=== PATIENT | male | born 1965 | race Caucasian/White ===

== ENCOUNTER 2022-07-08 00:03 | Emergency (ER) | payer BC, OTHER ==
[2022-07-08 00:38] LABS: BASOPHILS % (AUTO) 0.3 %; EOSINOPHILS % (AUTO) 0.3 %; HCT - HEMATOCRIT 45.4 % (42.0-52.0); HGB - HEMOGLOBIN 16.3 g/dL (14.0-18.0); LYMPHOCYTES # (AUTO) 1.5 10^3/uL (1.5-3.5); LYMPHOCYTES % (AUTO) 12.8 %; MEAN CORPUSCULAR HEMOGLOBIN 30.7 pg (27.0-31.0); MEAN CORPUSCULAR HGB CONC 35.9 g/dL (32.0-36.0); MEAN CORPUSCULAR VOLUME 85.5 fL (80.0-94.0); MONOCYTES # (AUTO) 0.7 10^3/uL (0.0-1.0); MONOCYTES % (AUTO) 5.5 %; NEUTROPHILS # (AUTO) 9.8 10^3/uL (1.5-6.6); NEUTROPHILS % (AUTO) 80.9 %; PLT - PLATELET COUNT 281 10^3/uL (130-450); RED BLOOD COUNT 5.31 10^6/uL (4.70-6.10); RED CELL DISTRIBUTION WIDTH 12.3 % (12.0-15.0); WHITE BLOOD COUNT 12.1 x10^3/uL (4.8-10.8)
[2022-07-08 00:51] LABS: POTASSIUM 3.5 mmol/L (3.5-5.0)
[2022-07-08 00:52] LABS: ALBUMIN 4.4 g/dL (3.2-5.5); ALBUMIN/GLOBULIN RATIO 1.3 (1.0-2.2); BILIRUBIN,TOTAL 0.9 mg/dL (0.2-1.0); CALCIUM 9.1 mg/dL (8.5-10.3); TOTAL PROTEIN 7.8 g/dL (6.7-8.2)
--- NOTE | 2022-07-08 01:00 | XRAY Report ---
PROCEDURE: Chest 1 View X-Ray INDICATIONS: Chest pain TECHNIQUE: One view of the chest was acquired. COMPARISON: None. FINDINGS: Surgical changes and devices: None. Lungs and pleura: No pleural effusions or pneumothorax. Lungs are clear considering reduced inspira tory volume. Mediastinum: Mediastinal contours appear normal. Heart size is normal considering the reduced inspi ratory volume. Bones and chest wall: No suspicious bony lesions. Overlying soft tissues appear unremarkable. IMPRESSION: Expiratory chest examination. This accentuates the crowding of the bronchovascular markings and also the perceived heart size. No definite acute disease is not found. Reviewed by: Richmond Khan MD on 07/08/2022 1:09 AM [facility] Approved by: Richmond Khan MD on 07/08/2022 1:09 AM [facility] Station ID: [id number]
[2022-07-08] MEDS ORDERED: ASPIRIN CHEW 81 MG TABLET ONE (01:09)
[2022-07-08] MEDS ORDERED: ASPIRIN 325 MG TABLET PO STA (01:10)
[2022-07-08] MEDS ORDERED: MORPHINE 2 MG/ML CARPUJECT IVP STA ×2 (01:14→06:44)
[2022-07-08] MEDS ORDERED: ONDANSETRON 4 MG/2 ML VIAL IVP STA (01:14)
[2022-07-08] MEDS ORDERED: iohexoL-300 100 ML VIAL ONE (01:24)
[2022-07-08] MEDS ORDERED: iohexoL-300 100 ML VIAL IVP ONE (02:02)
--- NOTE | 2022-07-08 02:10 | CT Report ---
PROCEDURE: ANGIO CHEST W/WO INDICATIONS: rule out PE CONTRAST: 100 MO OMNI 300 AT 4 ML/SEC WITH SURESTART DELAY. TECHNIQUE: After the administration of intravenous contrast, 2 mm axial images were acquired from the pulmonary apices to the posterior costophrenic angles during the arterial phase. In addition, 1 mm lung kernel and 5 mm soft tissue kernel reconstructions were performed. 3-dimensional coronal oblique maximum int ensity projection (MIP) reformats, 8 mm axial MIP, and 5 mm coronal and sagittal MPR reformats were t hen performed through the thorax. For radiation dose reduction, the following was used: automated exp osure control, adjustment of mA and/or kV according to patient size. COMPARISON: Chest plain film 07/08/2022. FINDINGS: Image quality: Excellent. Pulmonary arteries: Pulmonary arteries are normal in size, and demonstrate no intraluminal filling d efects to suggest central pulmonary embolism. Lungs and pleura: Lungs are clear considering reduced inspiratory volume. No pleural effusions or p neumothorax. Central and peripheral airways are patent. Mediastinum: Heart size is normal, without pericardial effusion. No mediastinal or hilar adenopathy . Thoracic aorta is normal in caliber and enhancement. Esophagus is normal in caliber, without hiat al hernia. Bones and chest wall: No suspicious bony lesions. Ribs and thoracic spine appear intact throughout. No axillary or supraclavicular adenopathy. The thyroid is normal in size and there are no incident al findings. Abdomen: Visualized upper abdominal solid organs appear normal in the early arterial phase of enhanc ement. IMPRESSION: Reduced inspiratory volume. No acute disease. No pulmonary embolus identified. CLINICAL RECOMMENDATION STATEMENTS: In patients <35 years with an ITN detected on CT, MRI, or extrathyroidal ultrasound, the Committee re commends further evaluation with dedicated thyroid ultrasound if the nodule is "e1 cm and has no susp icious imaging features, and if the patient has normal life expectancy. In patients "e35 years with an ITN detected on CT, MRI, or extrathyroidal ultrasound, the Committee r ecommends further evaluation with dedicated thyroid ultrasound if the nodule is "e1.5 cm and has no s uspicious imaging features, and if the patient has normal life expectancy. (ACR, 2014) Reviewed by: Richmond Khan MD on 07/08/2022 2:08 AM PST Approved by: Richmond Khan MD on 07/08/2022 2:08 AM [facility] Station ID: [id number]
[2022-07-08] MEDS ORDERED: NITROGLYCERIN SL 0.4 MG TABLET SL PRN (02:34)
[2022-07-08] MEDS ORDERED: CLOPIDOGREL 300 MG TABLET PO STA (02:42)
[2022-07-08] MEDS ORDERED: ENOXAPARIN 80 MG/0.8 ML SYRINGE SUBQ SCH (03:00)
[2022-07-08] MEDS: ATORVASTATIN 40 MG TABLET PO SCH ×2 (03:03→10:47)
[2022-07-08] MEDS: ENOXAPARIN 80 MG/0.8 ML SYRINGE SUBQ SCH ×3 (03:04→20:40)
[2022-07-08] MEDS ORDERED: SODIUM CHLORIDE 0.9% 1,000 ML IV STA (03:07)
--- NOTE | 2022-07-08 03:44 | ED Physician Documentation ---
History of Present Illness - Stated complaint Stated Complaint: CHEST PX - Chief complaint Chief Complaint: Cardiac - Additonal information Additional information: Patient is 57-year-old male presenting to the emergency department with chief complaint of chest pain. Endorses for substernal chest pressure that began this morning. Denies previous episodes of pain. Denies diaphoresis, nausea or vomiting. Does report recently traveled from [place] to [facility] on vacation. Denies any leg swelling or history of blood clots. Endorses for history of hypertension, dyslipidemia and prediabetes. Review of Systems Constitutional: denies: Fever Cardiac: reports: Chest pain / pressure Respiratory: denies: Dyspnea GI: denies: Abdominal Pain, Nausea, Vomiting PD PAST MEDICAL HISTORY - Past Surgical History Past Surgical History: No - Present Medications Home Medications: Ambulatory Orders Medication Instructions Recorded Confirmed Amlodipine Besylate [Norvasc] 10 mg PO DAILY 07/08/22 07/08/22 Atorvastatin [Lipitor] 20 mg PO DAILY 07/08/22 07/08/22 Empagliflozin [Jardiance] 10 mg PO DAILY 07/08/22 07/08/22 Losartan Potassium [Cozaar] 100 mg PO DAILY 07/08/22 07/08/22 - Allergies Allergies/Adverse Reactions: Allergies Allergy/AdvReac Type Severity Reaction Status Date / Time No Known Drug Allergies Allergy Verified 07/08/22 00:06 - Social History Does the pt smoke?: No Smoking Status: Never smoker Does the pt drink ETOH?: No Does the pt have substance abuse?: No - Immunizations Immunizations are current?: No PD ED PE NORMAL - Vitals Vital signs reviewed: Yes - General General: Alert and oriented X 3, No acute distress - HEENT HEENT: Atraumatic, PERRL - Neck Neck: Supple, no meningeal sign - Cardiac Cardiac: RRR, No gallop - Respiratory Respiratory: No respiratory distress - Abdomen Abdomen: Normal bowel sounds, Soft - Derm Derm: Normal color - Extremities Extremities: No deformity - Neuro Neuro: Alert and oriented X 3, hand mixer 2-12 intact, No motor deficit, Normal speech Results - Vitals Vitals: Vital Signs - 24 hr 07/08/22 07/08/22 07/08/22 00:06 02:01 03:15 Temperature 36.8 C Heart Rate 98 101 H 84 Respiratory 18 16 23 Rate Blood Pressure 206/107 H 167/103 H 106/76 O2 Saturation 97 98 91 L If not protocol : Oxygen Flow, liters/minute 07/08/22 07/08/22 07/08/22 04:05 04:30 05:02 Temperature Heart Rate 97 82 85 Respiratory 18 18 20 Rate Blood Pressure 153/98 H 160/94 H 152/91 H O2 Saturation 98 98 95 If not protocol 2 2 2 : Oxygen Flow, liters/minute 07/08/22 07/08/22 05:30 06:19 Temperature Heart Rate 96 95 Respiratory 21 22 Rate Blood Pressure 163/91 H 154/92 H O2 Saturation 96 97 If not protocol 2 2 : Oxygen Flow, liters/minute Oxygen O2 Source Nasal cannula Oxygen Flow Rate 2 - EKG (time done) 0022 Rate: Rate (enter#) (96) Rhythm: NSR [place]: Normal Intervals: Prolonged TN. No: Prolonged QT QRS: Normal Ischemia: Normal ST segments, Non specific changes Compare to prior EKG: Changed from prior EKG Computer interpretation: Agree with computer 0108 Rate: Rate (enter#) (96) Rhythm: NSR [place]: Normal Intervals: Prolonged TN QRS: Normal Ischemia: Normal ST segments Compare to prior EKG: Unchanged from prior EKG Computer interpretation: Agree with computer - Labs Labs: Laboratory Tests 07/08/22 07/08/22 07/08/22 00:35 00:35 00:35 WBC 12.1 H RBC 5.31 Hgb 16.3 Hct 45.4 MCV 85.5 MCH 30.7 MCHC 35.9 RDW 12.3 Plt Count 281 MPV 10.0 Neut # (Auto) 9.8 H Lymph # (Auto) 1.5 [place] # (Auto) 0.7 Eos # (Auto) 0.0 Baso # (Auto) 0.0 Absolute Nucleated RBC 0.00 Nucleated RBC % 0.0 PT INR Sodium 129 L Potassium 3.5 Chloride 96 L Carbon Dioxide 19 L Anion Gap 14.0 H BUN 12 Creatinine 1.0 Estimated GFR (MDRD) 77 L Glucose 282 H Lactic Acid Calcium 9.1 Total Bilirubin 0.9 AST 38 ALT 26 Alkaline Phosphatase 100 Troponin I High Sens 905.3 H* B-Natriuretic Peptide Total Protein 7.8 Albumin 4.4 Globulin 3.4 Albumin/Globulin Ratio 1.3 Lipase 26 SARS-CoV-2 (PCR) 01/07/08/22 07/08/22 00:35 01: 02:37 WBC RBC Hgb Hct MCV MCH MCHC RDW Plt Count MPV Neut # (Auto) Lymph # (Auto) [place] # (Auto) Eos # (Auto) Baso # (Auto) Absolute Nucleated RBC Nucleated RBC % PT INR Sodium Potassium Chloride Carbon Dioxide Anion Gap BUN Creatinine Estimated GFR (MDRD) Glucose Lactic Acid Calcium Total Bilirubin AST ALT Alkaline Phosphatase Troponin I High Sens 1455.0 H* B-Natriuretic Peptide 60 Total Protein Albumin Globulin Albumin/Globulin Ratio Lipase SARS-CoV-2 (PCR) NOT DETECTED 07/08/22 07/08/22 04:41 04:41 WBC RBC Hgb Hct MCV MCH MCHC RDW Plt Count MPV Neut # (Auto) Lymph # (Auto) [place] # (Auto) Eos # (Auto) Baso # (Auto) Absolute Nucleated RBC Nucleated RBC % PT 11.2 INR 1.0 Sodium Potassium Chloride Carbon Dioxide Anion Gap BUN Creatinine Estimated GFR (MDRD) Glucose Lactic Acid 0.9 Calcium Total Bilirubin AST ALT Alkaline Phosphatase Troponin I High Sens B-Natriuretic Peptide Total Protein Albumin Globulin Albumin/Globulin Ratio Lipase SARS-CoV-2 (PCR) PD Medical Decision Making - ED course Complexity details: reviewed results, re-evaluated patient, considered differential, d/w patient Reviewed Lab Results: Patient has critical elevation in troponin Social Determinants of Health: None Drug Therapy Requiring Monitoring for Toxicity: Lovenox, IV morphine, sublingual nitroglycerin Procedural Risk Factors Specific to Patient: Not applicable ED course: Patient 57-year-old male presenting to the emergency department with chest pain x1 day. Afebrile, he medically stable and arrival to the emergency department. Initial EKG with some ST abnormalities but no ST segment elevations. Initial labs significant for 0-hour troponin greater than 900. 2-hour troponin Greater [id number]. Serial EKGs did not show indications of acute ST segment elevation myocardial infarction. Patient did have history of recent travel and was sent for CTA which was negative for pulmonary embolism, pneumothorax or aortic dissection. Was given a single dose of nitroglycerin however had a precipitous drop in blood pressure with systolics going from 160s to 80s. This was easily corrected with fluid resuscitation however further nitroglycerin was held. He was given dose of morphine for pain control. At this time there are no beds at surrounding facilities. We will continue to search for bed and I will order for Lovenox twice daily as well as aspirin and clopidogrel and a high-dose daily statin. We will be signing the patient out to the oncoming physician, please see their documentation for further detail. Departure - Departure Clinical Impression: NSTEMI (non-ST elevated myocardial infarction), Unstable angina
[2022-07-08 05:12] LABS: PT - PROTHROMBIN TIME 11.2 secs (9.9-12.6)
--- NOTE | 2022-07-08 09:22 | ED Physician Documentation ---
ED Addendum - Addendum Addendum: 07/08/22 09:21 Patient seen and examined at bedside. He has no specific complaints. When I asked him if he had chest pain he initially said no, then vacillated and said maybe he has a 0.5 out of 10 pain. Objective: Vital signs were reviewed, last blood pressure 111/80, last pulse 79. General: Well-appearing and nontoxic. Legs: No edema Assessment: 1. Non-STEMI: So far troponin went from 905 to 1455, Will check again at noon. EKG changed from a few years ago but not a STEMI. He is on appropriate medical therapy including Lovenox twice daily, aspirin daily, atorvastatin daily, clopidogrel load and now daily, metoprolol. He has been ruled out for PE by angiogram. We are waiting for him to be transferred to a facility capable of cardiac intervention. Multiple facilities have been called and current hospital bed status issues are severe. All of the hospitals in the area are overwhelmed with patient's and are unable to accept him. Anticipate it may be days before he is transferred to a facility capable of cardiac intervention. Echocardiogram ordered, there is no echo on the weekends here, so if he is still here tomorrow or the next day that will be done.
[2022-07-08] MEDS: CLOPIDOGREL 75 MG TABLET PO SCH (09:28)
[2022-07-08] MEDS: ASPIRIN CHEW 81 MG TABLET PO SCH (09:28)
[2022-07-08] MEDS: METOPROLOL SUCCINATE 50 MG TABLET PO SCH (09:28)
--- NOTE | 2022-07-09 03:03 | ED Physician Documentation ---
ED Addendum - Addendum Addendum: 07/09/22 03:00 Patient received a signout from outgoing physician, please see their do cumentation for further detail. Patient continues to be boarded in the emergency department pending bed availability at a facility with appropriate cardiology service. Denies further chest pain. Nursing staff did inform me however that he has been having brief episodes of bradycardia. These appear to be associated with deep sleep/rest. I did obtain a twelve-lead EKG. EKG interpretation: Sinus rhythm with rate 65 bpm. Left axis deviation. Normal AK, QRS, QTc intervals. No ST segment elevations. T wave inversions now noted in lead aVL as well as V2 and V3 consistent with Wellens repolarization T waves. AK interval has shortened from previous and T wave inversions are new finding in comparison to previous EKG. Patient monitored carefully on continuously on telemetry throughout the remainder of my shift without further incident.
[2022-07-09 06:02] LABS: BASOPHILS % (AUTO) 0.4 %; EOSINOPHILS # (AUTO) 0.1 10^3/uL (0.0-0.7); HCT - HEMATOCRIT 44.7 % (42.0-52.0); LYMPHOCYTES # (AUTO) 3.2 10^3/uL (1.5-3.5); LYMPHOCYTES % (AUTO) 35.1 %; MEAN CORPUSCULAR HEMOGLOBIN 31.4 pg (27.0-31.0); MEAN CORPUSCULAR HGB CONC 35.8 g/dL (32.0-36.0); MEAN CORPUSCULAR VOLUME 87.6 fL (80.0-94.0); MEAN PLATELET VOLUME 10.1 fL (7.4-11.4); MONOCYTES # (AUTO) 0.9 10^3/uL (0.0-1.0); MONOCYTES % (AUTO) 9.8 %; NEUTROPHILS # (AUTO) 4.9 10^3/uL (1.5-6.6); NEUTROPHILS % (AUTO) 53.5 %; PLT - PLATELET COUNT 295 10^3/uL (130-450); RED CELL DISTRIBUTION WIDTH 12.7 % (12.0-15.0); WHITE BLOOD COUNT 9.1 x10^3/uL (4.8-10.8)
[2022-07-09 06:13] LABS: CALCIUM 8.7 mg/dL (8.5-10.3); CREATININE 1.1 mg/dL (0.6-1.2); POTASSIUM 3.7 mmol/L (3.5-5.0)
[2022-07-09] MEDS ORDERED: SODIUM CHLORIDE 0.9% 1,000 ML IV STA (07:46)
--- NOTE | 2022-07-09 07:52 | ED Physician Documentation ---
ED Addendum - Addendum Addendum: 07/09/22 07:50 57-year-old male presenting to the emergency department with chest pain 2 nights ago has been diagnosed with an NSTEMI. He is awaiting bed placement with a district extension service agent. He is now pain-free his troponin has elevated to about 1500 [place] [id number]. Patient has history of prediabetes and recent travel. I evaluated the patient's inferior vena cava with POCUS and found that he was significantly dehydrated with a vessel of 7.3 mm and provided intravenous saline for hydration. 07/09/22 07:52 07/09/22 08:50 We were able to contact Dr. Hazel at [facility] cardiology and he has excepted the patient in transfer to the emergency department. 07/09/22 08:52 Impression: NSTEMI, dehydration. Plan: patient is transferred to the emergency department at [facility] with Dr. Hazel the district extension service agent excepting. Turns out that I was not able to transfer this patient to the emergency department at [facility] as they were boarding 11 patients. We could not get approval from the ED doctor. We have continued our search for a bed for this patient and we are on high-priority at [facility]. The patient is symptom-free, frustrated but resting comfortably. 07/09/22 14:30
[2022-07-09] MEDS: ASPIRIN CHEW 81 MG TABLET PO SCH (09:40)
[2022-07-09] MEDS: CLOPIDOGREL 75 MG TABLET PO SCH (09:41)
[2022-07-09] MEDS: ATORVASTATIN 40 MG TABLET PO SCH (09:41)
[2022-07-09] MEDS: METOPROLOL SUCCINATE 50 MG TABLET PO SCH (09:41)
[2022-07-09] MEDS: ENOXAPARIN 80 MG/0.8 ML SYRINGE SUBQ SCH ×2 (09:41→20:47)
[2022-07-10 06:09] LABS: BASOPHILS % (AUTO) 0.4 %; EOSINOPHILS # (AUTO) 0.1 10^3/uL (0.0-0.7); EOSINOPHILS % (AUTO) 1.4 %; HCT - HEMATOCRIT 41.8 % (42.0-52.0); HGB - HEMOGLOBIN 14.9 g/dL (14.0-18.0); LYMPHOCYTES # (AUTO) 2.8 10^3/uL (1.5-3.5); LYMPHOCYTES % (AUTO) 35.1 %; MEAN CORPUSCULAR HEMOGLOBIN 30.6 pg (27.0-31.0); MEAN CORPUSCULAR HGB CONC 35.6 g/dL (32.0-36.0); MEAN CORPUSCULAR VOLUME 85.8 fL (80.0-94.0); MEAN PLATELET VOLUME 9.8 fL (7.4-11.4); MONOCYTES # (AUTO) 0.6 10^3/uL (0.0-1.0); MONOCYTES % (AUTO) 7.9 %; NEUTROPHILS # (AUTO) 4.3 10^3/uL (1.5-6.6); NEUTROPHILS % (AUTO) 54.9 %; PLT - PLATELET COUNT 264 10^3/uL (130-450); RED BLOOD COUNT 4.87 10^6/uL (4.70-6.10); RED CELL DISTRIBUTION WIDTH 12.3 % (12.0-15.0); WHITE BLOOD COUNT 7.9 x10^3/uL (4.8-10.8)
[2022-07-10 06:16] LABS: CALCIUM 8.5 mg/dL (8.5-10.3); CREATININE 0.9 mg/dL (0.6-1.2); POTASSIUM 3.6 mmol/L (3.5-5.0)
[2022-07-10] MEDS ORDERED: PERFLUTREN LIPID MICROSPHERES 1.65 MG/1.5 ML VIAL IVP STA (07:29)
[2022-07-10] MEDS: CLOPIDOGREL 75 MG TABLET PO SCH (10:37)
[2022-07-10] MEDS: ENOXAPARIN 80 MG/0.8 ML SYRINGE SUBQ SCH (10:37)
[2022-07-10] MEDS: ASPIRIN CHEW 81 MG TABLET PO SCH (10:37)
[2022-07-10] MEDS: ATORVASTATIN 40 MG TABLET PO SCH (10:37)
[2022-07-10] MEDS: METOPROLOL SUCCINATE 50 MG TABLET PO SCH (10:38)
[2022-07-10 14:52] VITALS: BP 130/82
--- NOTE | 2022-07-10 14:57 | ED Physician Documentation ---
ED Addendum - Addendum Addendum: 07/10/22 14:55 Patient has continued to board in the emergency department pending transfer to an outside facility for further management of his N STEMI. He has remained on Plavix aspirin metoprolol. He has downtrending troponins most recent one is in the 470s. Unfortunately there have been no beds available for transfer. I have personally evaluated the patient and reviewed his vital signs over the last 24 hours and find no abnormalities. 9 the patient is requesting to be discharged AGAINST MEDICAL ADVICE. His [id number] is passing and he would like to go visit him. The patient has been able to arrange an appointment with [facility] stripper apprentice Dr. Olivera on July 12. This appointment has already been set. At this time I have discussed the risks and benefits of leaving AGAINST MEDICAL ADVICE including further deterioration recurrence of the LA and and the patient has agreed to be discharged AGAINST MEDICAL ADVICE. I will send a prescription for the metoprolol to the [facility] in [place]. The patient is already on aspirin, Plavix and a statin.
== END 2022-07-10 15:32 | disposition left against medical advice (07) ==
LOC: ED 00:03
DX: I21.4 Non-ST elevation (NSTEMI) myocardial infarction (principal); E86.0 Dehydration; I95.2 Hypotension due to drugs; T46.3X5A Adverse effect of coronary vasodilators, initial encounter; Y92.538 Other ambulatory health services establishments as the place of occurrence of the external cause; R00.1 Bradycardia, unspecified; Z75.1 Person awaiting admission to adequate facility elsewhere; Z20.822 Contact with and (suspected) exposure to COVID-19
CPT/HCPCS: 36415; 71045; 71275; 80048; 80053; 83605; 83690; 83880; 84484; 85025; 85610; 87635; 93005; 93306; 96361; 96372; 96374; 96375; 96376; 99283; 99284; A9270; J1650; Q9957; Q9967

== ENCOUNTER 2023-07-18 17:38 | Outpatient (CLI) | payer BC ==
--- NOTE | 2023-07-18 18:18 | CT Report ---
PROCEDURE: Chest WO INDICATIONS: FRACTURED STERNAL WIRES TECHNIQUE: A CT scan of the chest was performed. Intravenous contrast media was not administered. Images were re corded and evaluated at appropriate window settings. Reformats: axial MIP of the chest, coronal and s agittal. For radiation dose reduction, the following was used: automated exposure control, adjustment of mA and/or kV according to patient size. COMPARISON: None. FINDINGS: Image quality: Excellent. Lungs and pleura: No consolidation. No pleural effusions. No pneumothorax. No suspicious pulmonary n odules which require follow up. Mediastinum: Heart size is normal. No pericardial effusion. No large vessel abnormality. No mediastin al adenopathy by size criteria. Prior CABG. Chest wall and lower neck: Thyroid is unremarkable. No axillary or supraclavicular adenopathy by size . Bones: No aggressive osseous abnormality. Sternotomy. Disrupted second clamshell wire. Upper Abdomen: Unremarkable. IMPRESSION: Sternotomy. Disrupted second clamshell wire (series 6, image 45). Reviewed by: Syed Lantigua MD on 07/18/2023 6:16 PM PST Approved by: Syed Lantigua MD on 07/18/2023 6:16 PM PST Station ID: [id number]
== END 2023-07-18 17:39 | disposition home or self-care (01) ==
LOC: DI 17:38
DX: T84.218A Breakdown (mechanical) of internal fixation device of other bones, initial encounter (principal); R07.89 Other chest pain; Y82.8 Other medical devices associated with adverse incidents